=== PATIENT | female | born 1950 | race American Indian/Alaskan Native ===

== ENCOUNTER 2016-03-30 11:07 | Outpatient (CLI) | payer MEDICARE ==
[2016-03-30 12:29] LABS: Blood Urea Nitrogen 9 mg/dL (7-17)
--- NOTE | 2016-03-30 14:25 | Cat Scan Report ---
CT HEAD WITH AND WITHOUT CONTRAST INDICATION: Headache. COMPARISON: None similar at this institution. FINDINGS: Pre-and postcontrast head CT demonstrates age-appropriate ventricles and sulci without acute or recent infarct, hemorrhage, mass effect or midline shift. No abnormal extra-axial fluid collections. Posterior fossa structures and basilar cisterns appear within normal limits. No suspicious abnormal enhancement. Clear imaged paranasal sinuses and mastoid air cells. Intact calvarium. Normal overlying scalp soft tissues. Numerous radiopaque dental material incidentally noted. Cervical spondylosis. CONCLUSION: No acute intracranial CT abnormality, as described. Thank you for the opportunity to participate in this patient's care.
== END 2016-03-30 11:08 | disposition home or self-care (01) ==
LOC: CT 11:07
PROVIDERS: ATTEND Family Medicine
DX: R51 Headache (principal); M47.892 Other spondylosis, cervical region
CPT/HCPCS: 36415; 70470; 82565; 84520; Q9967